=== PATIENT | female | born 1955 | race Caucasian/White ===

== ENCOUNTER 2016-12-01 10:36 | Emergency (ER) | payer MEDICARE, OTHER ==
[~2016-12-01] VITALS: Ht 162.6 cm; Wt 73.2 kg
[~2016-12-01 10:36] MED LIST: EFFEXOR 75M75 MG/TAB PO; MULTI VITAMINS1 TAB PO; VITAMIN B-1000 MCG/T PO
[2016-12-01 10:37] VITALS: TEMP 98.4
[2016-12-01] MEDS ORDERED: INDERAL 20MG20 MG PO (10:41)
[2016-12-01] MEDS ORDERED: BENICAR HCT 12.1 TA1 PO (10:41)
[2016-12-01 11:10] LABS: BASO # 0.1 (0.0-0.2); BASO % 1.1 % (0.0-2.0); EOS # 0.2 (0.0-0.7); EOS % 3.1 % (0-4.0); GRAN % 48.6 % (42.2-75.2); HEMOGLOBIN 13.7 g/dl (12.5-16.0); LYMPH # 2.4 (1.2-3.4); LYMPH % 39.3 % (20.0-51.0); MEAN CELL VOLUME 90 fl (80.0-100.0); MEAN CORPUSCULAR HEMOGLOBIN 30 pg (27.0-31.0); MEAN CORPUSCULAR HGB CONC 33 g/dl (33.0-37.0); MEAN PLATELET VOLUME 8.9 fl (7.4-10.4); MONO # 0.5 (0.1-0.6); MONO % 7.7 % (1.7-9.3); PLATELET COUNT 145 K/mm3 (130-400); RED BLOOD COUNT 4.57 M/mm3 (4.10-5.30); REDCELL DISTRIBUTION WIDTH-CV 12.2 % (11.5-14.5); WHITE BLOOD COUNT 6.1 K/mm3 (4.8-10.8)
[2016-12-01 11:23] LABS: ADJUSTED CALCIUM 8.6 mg/dL (8.4-10.2); ALANINE AMINOTRANSFERASE 23 U/L (9-52); ALBUMIN 4.2 gm/dL (3.5-5.0); ALKALINE PHOSPHATASE 69 U/L (50-136); ANION GAP 10 mmol/L (7-16); BILIRUBIN,TOTAL 0.9 mg/dL (0.0-1.0); BLOOD UREA NITROGEN 15 mg/dL (7-17); CALCIUM 8.8 mg/dL (8.4-10.2); CARBON DIOXIDE 31 mmol/L (22-30); CHLORIDE 99 mmol/L (98-107); GLUCOSE 77 mg/dL (74-106); POTASSIUM 3.3 mmol/L (3.4-5.0); SODIUM 140 mmol/L (137-145); TOTAL PROTEIN 7.2 gm/dL (6.4-8.2)
[2016-12-01 11:36] LABS: TROPONIN-I < 0.012 ng/mL (0.000-0.034)
[2016-12-01] MEDS ORDERED: NORVASC 5MG5 MG/TAB PO (12:06)
[2016-12-01 12:31] VITALS: BP 142/105; PULSE 61
== END 2016-12-01 12:38 | disposition home or self-care (01) ==
LOC: COL.ER 10:36
PROVIDERS: Emergency Medicine
DX: I10 Essential (primary) hypertension (principal); R00.1 Bradycardia, unspecified

== ENCOUNTER 2017-06-06 15:01 | Outpatient (CLI) | payer MEDICARE ==
[~2017-06-06] VITALS: Ht 162.6 cm; Wt 76.5 kg
[~2017-06-06 15:01] MED LIST changes: +BENICAR HCT 12.1 TA1 PO; +INDERAL 20MG20 MG PO; +NORVASC 5MG5 MG/TAB PO
[2017-06-06] MEDS ORDERED: CALCIUM 600MG+D1 TAB PO (15:29)
[2017-06-06] MEDS ORDERED: NORVASC 5MG5 MG/TAB PO (15:30)
[2017-06-06 15:43] VITALS: BP 104/79; PULSE 59; TEMP 97.9
== END 2017-06-06 17:19 | disposition home or self-care (01) ==
LOC: EUO 15:01
DX: M81.0 Age-related osteoporosis without current pathological fracture (principal)
CPT/HCPCS: J3489

== ENCOUNTER 2017-07-03 11:32 | Emergency (ER) | payer MEDICARE ==
[~2017-07-03] VITALS: Ht 165.1 cm; Wt 76.7 kg
[~2017-07-03 11:32] MED LIST changes: +CALCIUM 600MG+D1 TAB PO
[2017-07-03 11:50] VITALS: BP 127/81; TEMP 98.1
[2017-07-03 13:18] LABS: BASO # 0.1 (0.0-0.2); EOS # 0.2 (0.0-0.7); GRAN # 3.2 (1.4-6.5); GRAN % 52.3 % (42.2-75.2); HEMATOCRIT 42.9 % (37.0-47.0); HEMOGLOBIN 14.5 g/dl (12.5-16.0); LYMPH # 2.1 (1.2-3.4); LYMPH % 33.9 % (20.0-51.0); MEAN CELL VOLUME 89 fl (80.0-100.0); MEAN CORPUSCULAR HEMOGLOBIN 30 pg (27.0-31.0); MEAN CORPUSCULAR HGB CONC 34 g/dl (33.0-37.0); MEAN PLATELET VOLUME 9.3 fl (7.4-10.4); MONO # 0.6 (0.1-0.6); PLATELET COUNT 160 K/mm3 (130-400); RED BLOOD COUNT 4.81 M/mm3 (4.10-5.30); WHITE BLOOD COUNT 6.1 K/mm3 (4.8-10.8)
[2017-07-03 14:17] LABS: ADJUSTED CALCIUM 8.8 mg/dL (8.4-10.2); ALBUMIN 4.5 gm/dL (3.5-5.0); BILIRUBIN,TOTAL 0.7 mg/dL (0.0-1.0); CALCIUM 9.2 mg/dL (8.4-10.2); CREATININE, serum 0.72 mg/dL (0.52-1.25); POTASSIUM 3.5 mmol/L (3.4-5.0); TOTAL PROTEIN 7.6 gm/dL (6.4-8.2)
[2017-07-03 14:58] VITALS: PULSE 56
== END 2017-07-03 15:11 | disposition home or self-care (01) ==
LOC: COL.ER 11:32
PROVIDERS: Emergency Medicine
DX: R41.82 Altered mental status, unspecified (principal); G45.9 Transient cerebral ischemic attack, unspecified; I10 Essential (primary) hypertension; J44.9 Chronic obstructive pulmonary disease, unspecified; Z86.19 Personal history of other infectious and parasitic diseases; Z87.891 Personal history of nicotine dependence; Z98.84 Bariatric surgery status
CPT/HCPCS: J2765; J3010; J7040

== ENCOUNTER → 2017-07-10 | Outpatient (CLI) | payer MEDICARE | LOC: COL.RAD 07:26 | DX: G45.9 Transient cerebral ischemic attack, unspecified (principal) | CPT/HCPCS: A9585 ==

== ENCOUNTER 2018-05-04 20:26 | Emergency (ER) | payer MEDICARE ==
[~2018-05-04] VITALS: Ht 162.6 cm; Wt 73.2 kg
[2018-05-04 20:33] VITALS: TEMP 97.9
[2018-05-04] MEDS ORDERED: PERCOCET 325 MG1 TA2 PO (22:22)
[2018-05-05 00:30] VITALS: BP 145/110; PULSE 96
== END 2018-05-05 00:30 | disposition home or self-care (01) ==
LOC: COL.ER 20:26
DX: S52.502A Unspecified fracture of the lower end of left radius, initial encounter for closed fracture (principal); J44.9 Chronic obstructive pulmonary disease, unspecified; I10 Essential (primary) hypertension; W18.39XA Other fall on same level, initial encounter; Y92.009 Unspecified place in unspecified non-institutional (private) residence as the place of occurrence of the external cause
CPT/HCPCS: J1170; J2405; Q4050

== ENCOUNTER 2018-12-09 09:53 | Outpatient (RCR) | payer MEDICARE ==
[~2018-12-09] VITALS: Ht 162.6 cm; Wt 78.6 kg
[~2018-12-09 09:53] MED LIST changes: +PERCOCET 325 MG1 TA2 PO
[2018-12-09 10:35] VITALS: BP 129/97; PULSE 58; TEMP 98
== END 2018-12-09 11:49 | disposition home or self-care (01) ==
LOC: EUO 09:53
DX: M81.0 Age-related osteoporosis without current pathological fracture (principal); Z79.899 Other long term (current) drug therapy
CPT/HCPCS: J0897

== ENCOUNTER 2019-07-04 13:52 | Outpatient (CLI) | payer MEDICARE ==
[~2019-07-04] VITALS: Ht 162.6 cm; Wt 79.4 kg
[2019-07-04] MEDS ORDERED: ASPIRIN 32325 MG/TAB PO (14:00)
[2019-07-04 14:11] VITALS: BP 121/82; PULSE 53; TEMP 98.1
== END 2019-07-04 14:24 | disposition home or self-care (01) ==
LOC: EUO 13:52
DX: M81.0 Age-related osteoporosis without current pathological fracture (principal); Z79.899 Other long term (current) drug therapy
CPT/HCPCS: J0897

== ENCOUNTER → 2019-08-08 | Outpatient (CLI) | payer MEDICARE ==
[~2019-08-08] MED LIST changes: +ASPIRIN 32325 MG/TAB PO
== END ==
LOC: MC.RAD 10:28
DX: Z12.31 Encounter for screening mammogram for malignant neoplasm of breast (principal); Z00.00 Encounter for general adult medical examination without abnormal findings

== ENCOUNTER 2020-01-05 14:37 | Outpatient (CLI) | payer MEDICARE, OTHER ==
[~2020-01-05] VITALS: Ht 162.6 cm; Wt 80.9 kg
[2020-01-05 15:07] VITALS: BP 140/90; PULSE 54; TEMP 98.2
== END 2020-01-05 15:24 | disposition home or self-care (01) ==
LOC: EUO 14:37
DX: M81.0 Age-related osteoporosis without current pathological fracture (principal)
CPT/HCPCS: J0897

== ENCOUNTER 2020-07-08 09:32 | Outpatient (CLI) | payer MEDICARE, OTHER ==
[~2020-07-08] VITALS: Ht 162.6 cm; Wt 74.0 kg
[2020-07-08 10:02] VITALS: BP 127/94; PULSE 56; TEMP 98.6
== END 2020-07-08 10:58 | disposition home or self-care (01) ==
LOC: EUO 09:32
DX: M81.0 Age-related osteoporosis without current pathological fracture (principal)
CPT/HCPCS: J0897

== ENCOUNTER 2021-01-26 14:13 | Outpatient (CLI) | payer MEDICARE, OTHER ==
[~2021-01-26] VITALS: Ht 162.6 cm; Wt 77.2 kg
[2021-01-26 14:54] VITALS: BP 110/76; PULSE 64; TEMP 98.1
== END 2021-01-26 15:03 | disposition home or self-care (01) ==
LOC: EUO 14:13
DX: M81.0 Age-related osteoporosis without current pathological fracture (principal)
CPT/HCPCS: J0897

== ENCOUNTER 2021-09-14 13:44 | Outpatient (CLI) | payer MEDICARE ==
[~2021-09-14] VITALS: Ht 162.6 cm; Wt 81.0 kg
[2021-09-14 14:41] VITALS: BP 130/92; BP 144/97; PULSE 76; TEMP 97.8
== END 2021-09-14 17:56 | disposition home or self-care (01) ==
LOC: EUO 13:44
DX: M81.0 Age-related osteoporosis without current pathological fracture (principal)
CPT/HCPCS: J0897

== ENCOUNTER 2022-02-10 05:15 | Inpatient (IN) | payer MEDICARE, MEDICAID ==
[2022-02-10] VITALS (12 sets, daily range): BP systolic 92–126; BP diastolic 60–90; PULSE 48–78; TEMP 97.5–98.1
[~2022-02-10] VITALS: Ht 165.1 cm; Wt 81.0 kg
[~2022-02-10 05:15] MED LIST changes: +B-12 500 MCG PO; -VITAMIN B-1000 MCG/T PO
[2022-02-10] MEDS ORDERED: MOBIC15 MG PO (07:03)
[2022-02-10] MEDS ORDERED: MULTI VITAMINS1 TAB PO (07:04)
[2022-02-10] MEDS ORDERED: BENICAR HCT 12.1 TA1 PO (07:05)
[2022-02-10] MEDS ORDERED: ADIPEX-P37.5 MG PO (07:07)
[2022-02-10] MEDS ORDERED: K-DUR20 MEQ PO (07:09)
[2022-02-10] MEDS ORDERED: PROLIA60 MG/ML SQ (07:11)
[2022-02-10] MEDS ORDERED: TOPAMAX 25MG25 M1 PO (07:13)
[2022-02-10] MEDS ORDERED: EFFEXOR-XR150 MG PO (07:14)
[2022-02-10] MEDS ORDERED: NORVASC 5MG5 MG/TAB PO (07:14)
[2022-02-10] MEDS ORDERED: VITAMIN D31000 IU PO (07:15)
[2022-02-10] MEDS ORDERED: FLONASE NASAL S16 GM NS (07:16)
[2022-02-10 10:51] LABS: HEMOGLOBIN 13.5 g/dl (12.5-16.0)
--- NOTE | 2022-02-10 10:58 | NUR ---
Report received from child & adolescent psychiatristAllyson. Care to be taken over by this RN. 1100: Patient oroom 222 via bed. IV in left hand, running LR with gravity. 02 via NC at 2L. 3 x bandaid to abdomen all CDI. Kerri pad clean. SDI to BLE. VSS. Pt oriented to room. Call light and personal belongings at bedside.
[2022-02-10 11:10] LABS: CALCIUM 8.6 mg/dL (8.4-10.2); CREATININE, serum 0.88 mg/dL (0.57-1.11); POTASSIUM 3.6 mmol/L (3.5-4.5)
--- NOTE | 2022-02-10 11:17 | NUR ---
Initial visit; Patient recovering from Surgical Procedures and thanked [employer] Machine Mechanic for looking in on her, offering God's Blessings. Patient appeared to be comforted by [employer] Mechanic's presence and prayer. [employer] Machine Mechanic wished her well.
--- NOTE | 2022-02-10 20:20 | NUR ---
2020-VISITING WITH FAMILY MEMBER. DENIES NEEDS AND ENCOURAGED TO AMBULATE TO BR AND ATTEMPT TO VOID. PT AGREES AND SCDS REMOVED AT THIS TIME.
--- NOTE | 2022-02-10 20:30 | NUR ---
2030-VOIDED 150ML YELLOW URINE
--- NOTE | 2022-02-10 21:00 | NUR ---
2100-PT TOOK OWN INDEROL 20MG.
--- NOTE | 2022-02-10 21:10 | NUR ---
2109-EATING SNACK AND DENIES NEEDS
--- NOTE | 2022-02-10 23:55 | NUR ---
2355-AWAKENED FOR SCHEDULED MOTRIN. PT DENIES NEEDS AT THIS TIME.
[2022-02-11 02:15] VITALS: BP 90/63; PULSE 68; TEMP 97.6
[2022-02-11 07:00] VITALS: BP 101/64; PULSE 60; TEMP 98.3
[2022-02-11] MEDS ORDERED: PERCOCET 325 MG1 TA2 PO (07:29)
== END 2022-02-11 08:30 | disposition home or self-care (01) | DRG 743 ==
LOC: SDCO 05:15 → OB 10:06
PROVIDERS: ADMIT Obstetrics & Gynecology
PROC: 0JQC0ZZ Repair Pelvic Region Subcutaneous Tissue and Fascia, Open Approach (ICD-10-PCS; 2022-02-10)
PROC: 0DNU4ZZ Release Omentum, Percutaneous Endoscopic Approach (ICD-10-PCS; 2022-02-10)
PROC: 0DN84ZZ Release Small Intestine, Percutaneous Endoscopic Approach (ICD-10-PCS; 2022-02-10)
PROC: 0UT9FZZ Resection of Uterus, Via Natural or Artificial Opening With Percutaneous Endoscopic Assistance (ICD-10-PCS; principal; 2022-02-10 07:30)
PROC: 0UT74ZZ Resection of Bilateral Fallopian Tubes, Percutaneous Endoscopic Approach (ICD-10-PCS; 2022-02-10 07:30)
PROC: 0UT24ZZ Resection of Bilateral Ovaries, Percutaneous Endoscopic Approach (ICD-10-PCS; 2022-02-10 07:30)
DX: N81.4 Uterovaginal prolapse, unspecified (principal); K66.0 Peritoneal adhesions (postprocedural) (postinfection); J44.9 Chronic obstructive pulmonary disease, unspecified; G47.33 Obstructive sleep apnea (adult) (pediatric); I10 Essential (primary) hypertension; K75.9 Inflammatory liver disease, unspecified; F32.A Depression, unspecified; M19.90 Unspecified osteoarthritis, unspecified site
CPT/HCPCS: A4314; C2631; J0690; J1885; J2405; J2704; J2710; J3010; J7120